=== PATIENT | male | born 1980 | race Caucasian/White ===

== ENCOUNTER 2023-10-28 19:00 | Emergency (ER) | payer OTHER ==
[2023-10-28 19:08] VITALS: BP 143/99; PULSE 92; RESP 20; TEMP 98.3; BMI 21.9
[2023-10-28] MEDS ORDERED: LIDOCAINE 4% PATCH TP ONE (20:04)
[2023-10-28] MEDS ORDERED: METHOCARBAMOL 500 MG TABLET ONE (20:04)
[2023-10-28] MEDS ORDERED: KETOROLAC TROMETHAMINE 30 MG/1 ML VIAL ONE (20:05)
[2023-10-28] MEDS ORDERED: ACETAMINOPHEN 500 MG TABLET (FP) ONE (20:05)
[2023-10-28] MEDS: LIDOCAINE 5% TOPICAL PATCH TP ONE (20:08)
[2023-10-28] MEDS: METHOCARBAMOL 500 MG TABLET PO ONE (20:08)
[2023-10-28] MEDS: ACETAMINOPHEN 500 MG TABLET (FP) PO ONE (20:09)
[2023-10-28] MEDS: KETOROLAC TROMETHAMINE 30 MG/1 ML VIAL IM ONE (20:09)
[2023-10-28] MEDS ORDERED: LIDOCAINE PATCH REMOVAL MC SCH (22:00)
== END 2023-10-28 22:12 | disposition home or self-care (01) ==
LOC: JERFT 19:00
PROC: 3E0233Z Introduction of Anti-inflammatory into Muscle, Percutaneous Approach (ICD-10-PCS; principal; 2023-10-28)
DX: M54.2 Cervicalgia (principal); M25.511 Pain in right shoulder; V49.40XA Driver injured in collision with unspecified motor vehicles in traffic accident, initial encounter; Y92.410 Unspecified street and highway as the place of occurrence of the external cause
CPT/HCPCS: 72125-TC; 73030-TC-RT-FY; 99284-25